=== PATIENT | male | born 1945 | race Caucasian/White ===

== ENCOUNTER → 2018-07-21 | Outpatient (CLI) | payer OTHER ==
[~2018-07-21] MED LIST: GADOBUTROL 10 ML VIAL IVP ONE
== END ==
LOC: FIMAGING 15:06
PROVIDERS: ATTEND Specialist
DX: N40.2 Nodular prostate without lower urinary tract symptoms (principal)
CPT/HCPCS: 72197; 76377; A9585; 82565-PO